=== PATIENT | male | born 1995 | race Caucasian/White ===

== ENCOUNTER → 2019-06-15 | Outpatient (REF) ==
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
== END | disposition home or self-care (01) ==
LOC: MERGE 12:19 → OCC 12:19
PROVIDERS: ATTEND Nurse Practitioner Family
CPT/HCPCS: 70450; 72072; 72125